=== PATIENT | male | born 1995 | race Caucasian/White ===

== ENCOUNTER 2021-11-22 06:19 | Emergency (ER) | payer OTHER ==
[~2021-11-22] VITALS: Ht 172.7 cm; Wt 72.6 kg
== END 2021-11-22 08:50 | disposition home or self-care (01) ==
LOC: ER 06:19
DX: M62.830 Muscle spasm of back (principal); F17.290 Nicotine dependence, other tobacco product, uncomplicated
CPT/HCPCS: 36415; 99283

== ENCOUNTER 2024-07-21 00:01 | Emergency (ER) | payer OTHER ==
[~2024-07-21] VITALS: Ht 170.2 cm; Wt 76.2 kg
[2024-07-21 00:39] VITALS: BP 131/86
[2024-07-21] MEDS ORDERED: RIZATRIPTAN SL (00:42)
[2024-07-21] MEDS ORDERED: CYMBALTA60 MG PO (00:43)
[2024-07-21] MEDS ORDERED: HYDPAM25 PO (00:44)
[2024-07-21] MEDS ORDERED: DIVA250EC PO (00:44)
[2024-07-21] MEDS ORDERED: Prochlorperazine Edisylate 10 mg Vial IV ONE (01:05)
[2024-07-21] MEDS ORDERED: DiphenhydrAMINE HCl 50 MG/ML 1ML Vial IV ONE (01:05)
[2024-07-21] MEDS ORDERED: Acetaminophen 500 MG Tab PO ONE (01:05)
[2024-07-21] MEDS ORDERED: NS 1,000 ML IV SCH (01:05)
[2024-07-21] MEDS ORDERED: Dexamethasone Sod Phos 10 MG/ML 1ML VIAL IV ONE (01:05)
== END 2024-07-21 02:39 | disposition home or self-care (01) ==
LOC: ER 00:01
DX: G43.909 Migraine, unspecified, not intractable, without status migrainosus (principal); Z55.6 Problems related to health literacy; Z88.8 Allergy status to other drugs, medicaments and biological substances; F17.290 Nicotine dependence, other tobacco product, uncomplicated
CPT/HCPCS: 96361; 96374; 96375; 99283-25; A9270; J0780; J1100; J1200; J7030

== ENCOUNTER → 2024-12-27 | Outpatient (CLI) | payer OTHER ==
[~2024-12-27] MED LIST: CYMBALTA60 MG PO; DIVA250EC PO; HYDPAM25 PO; RIZATRIPTAN SL
[2024-12-27 18:23] LABS: BASOPHILS ABSOLUTE AUTO 0.07 K/mm3 (0.00-0.23); BASOPHILS PERCENT AUTO 1 % (0-2); EOSINOPHILS ABSOLUTE AUTO 0.13 K/mm3 (0.00-0.68); EOSINOPHILS PERCENT AUTO 1 % (0-6); Hematocrit 44.3 % (37.0-53.0); Hemoglobin 15.1 g/dL (13.5-17.5); IMMATURE GRAN ABSOLUTE AUTO 0.04 K/mm3 (0.00-0.10); IMMATURE GRAN PERCENT AUTO 0 % (0-1); LYMPHOCYTES ABSOLUTE AUTO 2.52 K/mm3 (0.84-5.20); LYMPHOCYTES PERCENT AUTO 20 % (21-46); MONOCYTES ABSOLUTE AUTO 1.01 K/mm3 (0.16-1.47); MONOCYTES PERCENT AUTO 8 % (4-13); Mean Corpuscular HGB 29.4 pg (26.0-34.0); Mean Corpuscular HGB Conc 34.1 g/dL (31.5-36.5); Mean Corpuscular Volume 86 fL (80-100); Mean Platelet Volume 10.1 fL (9.1-12.4); NEUTROPHILS ABSOLUTE AUTO 8.87 K/mm3 (1.96-9.15); NEUTROPHILS PERCENT AUTO 70 % (41-73); Platelet Count 267 K/mm3 (150-400); RDW Coefficient Variation 13.2 % (11.7-14.2); RDW Standard Deviation 41.7 fL (35.1-46.3); Red Blood Cell Count 5.14 M/mm3 (4.30-5.90); White Blood Cell Count 12.64 K/mm3 (4.00-11.30)
[2024-12-27 18:34] LABS: Albumin, Blood 4.6 g/dL (3.4-5.0); Albumin/Globulin Ratio 1.4 (0.8-1.8); Bilirubin, Total 0.9 mg/dL (0.1-1.0); Bun/Creatinine Ratio 15.8 (12.0-20.0); Calcium, Blood 9.9 mg/dL (8.5-10.1); Creatinine, Blood 1.2 mg/dL (0.60-1.20); Globulin, Blood 3.4 g/dL (2.2-4.0); Potassium, Blood 3.5 mmol/L (3.5-5.5)
== END ==
LOC: LAB SHORT 18:19 → LAB 18:19
PROVIDERS: Emergency Medicine
DX: R10.9 Unspecified abdominal pain (principal)
CPT/HCPCS: 80053; 85025

== ENCOUNTER 2025-03-10 14:40 | Emergency (ER) | payer SELFPAY ==
[~2025-03-10] VITALS: Ht 170.2 cm; Wt 65.8 kg
[2025-03-10 14:56] VITALS: BP 144/91
== END 2025-03-10 14:55 ==
LOC: ER 14:40
DX: S00.83XA Contusion of other part of head, initial encounter (principal); X58.XXXA Exposure to other specified factors, initial encounter; Z88.8 Allergy status to other drugs, medicaments and biological substances; Z79.899 Other long term (current) drug therapy
CPT/HCPCS: 99282